=== PATIENT | female | born 1950 | race Caucasian/White ===

== ENCOUNTER 2018-10-28 05:19 | Day surgery (SDC) | payer OTHER ==
[~2018-10-28 05:19] MED LIST: ATORVASTATIN CA20 MG PO; CHLORTHALIDONE25 MG PO; COZAAR100 MG PO; METFORMIN HCL500 MG PO; OSTERA TABLET1 EACH PO; PLETAL PO; SYNTHROID88 MCG PO
== END 2018-10-28 10:55 | disposition home or self-care (01) ==
LOC: AMB-ENDOS 05:19
DX: K64.1 Second degree hemorrhoids (principal)

== ENCOUNTER 2020-01-26 07:32 | Day surgery (SDC) | payer OTHER | END 2020-01-26 13:35 | disposition home or self-care (01) | LOC: AMB-ENDOS 07:32 | PROVIDERS: ATTEND Colon & Rectal Surgery | DX: K62.89 Other specified diseases of anus and rectum (principal); K64.2 Third degree hemorrhoids; Z20.828 Contact with and (suspected) exposure to other viral communicable diseases ==